=== PATIENT | male | born 1975 | race Caucasian/White ===

== ENCOUNTER 2020-04-01 09:02 | Emergency (ER) | payer OTHER, BC ==
--- NOTE | 2020-04-01 09:48 | EDM.PDOC ---
ED HPI GENERAL MEDICAL PROBLEM - General Chief Complaint: Upper Extremity Injury/Pain Stated Complaint: FALL, RIGHT WRIST PAIN Time Seen by Provider: 04/01/20 09:18 - History of Present Illness INITIAL COMMENTS - FREE TEXT/NARRATIVE: Patient presents to the ER today after fall on outstretched hand this morning. 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 was walking across parking lot ~ 0630 and slipped on ice, falling on right hand. rates current pain as 0/10 with no movement but if trys to move then 3/10 achy/sharp in nature. He feels lump on radial wrist side as well as swelling so came to the ER for further evaluation. PMH--Obesity Meds--denies NKDA Tob--quit couple years ago, last week started smoking cigarettes again/1ppd plus he reports vaping EtOH--occassional Drugs--denies - Related Data Allergies Allergy/AdvReac Type Severity Reaction Status Date / Time No Known Allergies Allergy Verified 04/01/20 09:18 Home Meds: Home Meds NK [No Known Home Meds] 04/01/20 [History] Past Medical History HEENT History: Reports: Impaired Vision Musculoskeletal History: Reports: Fracture - Past Surgical History HEENT Surgical History: Reports: Oral Surgery Male Surgical History: Reports: Vasectomy Social & Family History - Tobacco Use Tobacco Use Status *Q: Light Tobacco User Years of Tobacco use: 30 Packs/Tins Daily: 0.2 - Caffeine Use Caffeine Use: Reports: Energy Drinks - Recreational Drug Use Recreational Drug Use: No Review of Systems - Review of Systems Review Of Systems: Comprehensive ROS is negative, except as noted in HPI. Constitutional: Reports: Other (morbid obesity) Musculoskeletal: Reports: Joint Pain (right wrist), Joint Swelling (right wrist), Other (right hand dominant) ED EXAM, GENERAL - Physical Exam Exam: See Below Exam Limited By: No Limitations General Appearance: Alert, WD/WN, No Apparent Distress, Obese Eye Exam: Bilateral Eye: EOMI, Normal Inspection, PERRL Ears: Normal External Exam, Hearing Grossly Normal Head: Atraumatic, Normocephalic Neck: Normal Inspection, Supple, Non-Tender, Full Range of Motion Respiratory/Chest: No Respiratory Distress, Lungs Clear, Normal Breath Sounds, No Accessory Muscle Use Cardiovascular: Normal Peripheral Pulses, Regular Rate, Rhythm, No Edema, No Murmur Peripheral Pulses: 2+: Radial (L), Radial (R) GI/Abdominal: Normal Bowel Sounds, Soft, Other (limited by morbid obesity) (Male) Exam: Deferred Rectal (Males) Exam: Deferred Back Exam: Normal Inspection, Full Range of Motion Extremities: Normal Capillary Refill, Limited Range of Motion (right wrist with palpatory tenderness, limited flex/ext, sup/pron, mild swelling radial side) Neurological: Alert, Oriented, Normal Cognition, Normal Gait, No Motor/Sensory Deficits Psychiatric: Normal Affect, Normal Mood Skin Exam: Warm, Dry, Intact, Normal Color Course - Vital Signs Text/Narrative:: 0959--d/w patient recommendation to place velcro wrist splint, must wear all times. may use ibuprofen for inflammation/pain, ice for swelling/pain and f/u with PCM in one week for re-exam and repeat x-ray. verbalized understanding / agreement with plan of care Last Recorded V/S: Last Vital Signs Temp 97.1 F 04/01/20 09:23 Pulse 77 04/01/20 09:23 Resp 22 H 04/01/20 09:23 BP 152/99 H 04/01/20 09:23 Pulse Ox 97 04/01/20 09:23 - Orders/Labs/Meds Orders: Active Orders 24 hr Category Date Time Status Splinting [RC] ASDIRECTED Care 04/01/20 10:03 Active - Radiology Interpretation Free Text/Narrative:: 0958--preliminary reading of right wrist questionable nondisplaced fracture line of distal radius; final radiology reading pending Final Radiology report--radial styloid nondisplaced fracture; old/chronic scaphoid fracture Departure - Departure Time of Disposition: 10:14 Disposition: Home, Self-Care 01 Condition: Good Clinical Impression: Closed fracture of radial styloid, Fall from other slipping, tripping, or stumb ling - Discharge Information *PRESCRIPTION DRUG MONITORING PROGRAM REVIEWED*: Not Applicable *COPY OF PRESCRIPTION DRUG MONITORING REPORT IN PATIENT CHIQUITA: Not Applicable Instructions: Wrist Fracture Treated With Immobilization, [id number] Referrals: PCP,None [Primary Care Provider] - Forms: ED Department Discharge Additional Instructions: Wear velcro wrist splint as provided in the ER at all times except for shower You may use ice for swelling/pain You may use over the counter ibuprofen/Motrin/Advil per label Avoid lifting/pushing/pulling/carrying items with your right hand Follow up in 1 week with your Family Doctor or local Orthopedic Surgeon for re- evaluation and further care/management Sepsis Event Note (ED) - Evaluation Sepsis Screening Result: No Definite Risk - Focused Exam Vital Signs: Vital Signs Temp Pulse Resp BP Pulse Ox 04/01/20 09:23 97.1 F 77 22 H 152/99 H 97 - My Orders Last 24 Hours: My Active Orders 04/01/20 10:03 Splinting [RC] ASDIRECTED - Assessment/Plan Last 24 Hours: My Active Orders 04/01/20 10:03 Splinting [RC] ASDIRECTED
--- NOTE | 2020-04-01 10:07 | CR ---
Wrist Comp Min 3V Rt CLINICAL HISTORY: Fall FINDINGS: There is a comminuted nondisplaced marginal articular fracture through the radial styloid. Ulna appears intact. There is some deformity of the scaphoid which may be from old fracture or osteoarthritis. IMPRESSION: Cannulated nondisplaced fracture through the ulnar styloid Scaphoid deformity is likely of remote chronology
== END 2020-04-01 10:30 | disposition home or self-care (01) ==
LOC: JP.ED 09:02
DX: S52.514A Nondisplaced fracture of right radial styloid process, initial encounter for closed fracture (principal); F17.210 Nicotine dependence, cigarettes, uncomplicated; W00.0XXA Fall on same level due to ice and snow, initial encounter; Y92.481 Parking lot as the place of occurrence of the external cause
CPT/HCPCS: 73110-26-RT; 73110-RT; 99283; 99283-25